=== PATIENT | female | born 1945 | race Caucasian/White ===

== ENCOUNTER 2016-11-22 16:45 | Emergency (ER) | payer OTHER ==
--- NOTE | 2016-11-22 17:08 | PROVIDER DOCUMENTATION ---
Addendum entered and electronically signed by Jordan Matthew MD 12/04/16 03: 01: Attestation - Scribe Verification/Attestation Scribe:: Blake Busby Acting as Scribe for:: Jordan Matthew Scribe documention review:: This chart was documented by a scribe and accurately reflects the service the provider performed and the decisions made by the provider. Original Note: HPI-General Adult - General Source: patient - History of Present Illness -Gen Adult Nature of Presenting Problems: 71 yo F presents to the ER with complaint of blood pressure problems. Has been keeping a log, systolic pressure ranges from 140-170. States her pulse has dropped down to the 40's. States she is not any more short of breath or coughing more than usual. Complains of a JENKINS. Onset/Duration: reports: 4 days ago <Shana Ramachandran - Last Filed: 11/22/16 17:47> <Blake Busby - Last Filed: 11/22/16 19:11> - General Chief Complaint: Shortness of Breath Stated Complaint: SOB/COPD/BP PROB Time Seen by Provider: 11/22/16 17:06 Allergies/Adverse Reactions: Patient Allergies Allergy/AdvReac Type Severity Reaction Status Date / Time No Known Allergies Allergy Verified 11/22/16 16:56 Home Medications: Home Medication List Medication Instructions Recorded Confirmed Last Taken Type Clonidine [Catapres] 0.1 mg PO DAILY 11/22/16 11/22/16 11/22/16 History Hydrochlorothiazide 25 mg PO TID 11/22/16 11/22/16 11/22/16 History Irbesartan [Avapro] 300 mg PO DAILY #30 tablet 11/22/16 Unknown Rx Review of Systems - Adult - REVIEW OF SYSTEMS - ADULT Constitutional: denies: chills, fever Eyes: reports: no symptoms reported Ears, Nose, Mouth & Throat: reports: no symptoms reported Cardiovascular: reports: irregular heart rate. denies: chest pain, palpitations Respiratory: reports: cough, shortness of breath Gastrointestinal: reports: no symptoms reported Genitourinary: reports: no symptoms reported Musculoskeletal: reports: no symptoms reported Integumentary: reports: no symptoms reported Neurological: reports: headache/migraines. denies: dizziness/vertigo Psychiatric: reports: no symptoms reported Endocrine: reports: no symptoms reported Hematologic/Lymphatic: reports: no symptoms reported Allergic/Immunologic: reports: no symptoms reported All Other Systems: Reviewed and Negative <Shana Ramachandran - Last Filed: 11/22/16 17:47> Past History - Adult - PAST MEDICAL HISTORY-ADULT Review of Records: reports: Nursing Assessment Review, Medications Reviewed Cardiovascular: reports: HTN Respiratory: reports: COPD - PRIOR SURGERIES/PROCEDURES Surgical/Procedure History: reports: hysterectomy - IMMUNIZATION STATUS Childhood Immunizations: See Nurse Assessment Flu Vaccine: See Nurse Assessment <Shana Ramachandran - Last Filed: 11/22/16 17:47> Physical Exam-General - PHYSICAL EXAM-ADULT Initial Vital Signs Reviewed: Yes - CONSTITUTIONAL General Appearance: alert, no apparent distress - EYES Eyes: PERRL/EOMI, pink conjunctivae - HEAD, EARS, NOSE, MOUTH & THROAT HENMT: normocephalic/atraumatic, normal ENT inspection - NECK Neck: supple, normal inspection - RESPIRATORY Respiratory: no respiratory distress, no accessory muscle use - CARDIOVASCULAR Cardiovascular: normal peripheral pulses, regular rate, rhythm - MUSCULOSKELETAL Back Exam: no CVA tenderness, no vertebral tenderness Extremity: normal gait, normal inspection - SKIN Integumentary: normal color, warm/dry - NEUROLOGIC Neurologic: grossly normal, no motor/sensory deficits - PSYCHIATRIC Psych/Mental Status: normal mood/affect, normal thought content, normal thought process, oriented x 3 <Shana Ramachandran - Last Filed: 11/22/16 17:47> Progress - PLAN OF CARE/RESULTS Progress/Plan/Lab Results: Vital Signs Temp Pulse Resp BP Pulse Ox 11/22/16 16:50 97.7 F 63 19 229/065 99 No Known Allergies Allergy (Verified 11/22/16 16:56) Clonidine [Catapres] 0.1 mg PO DAILY 11/22/16 Hydrochlorothiazide 25 mg PO TID 11/22/16 Laboratory 11/22/16 17:10 WBC 9.00 RBC 5.56 H Hgb 15.3 Hct 46.7 MCV 84.0 MCH 27.5 MCHC 32.8 L RDW Std Deviation 13.1 Plt Count 235 MPV 10.7 H Immature Gran % (Auto) 0.1 Neut % (Auto) 51.8 Lymph % (Auto) 38.4 [place] % (Auto) 6.3 Eos % (Auto) 3.1 Baso % (Auto) 0.3 Immature Gran # (Auto) 0.01 Neut # (Auto) 4.65 Lymph # (Auto) 3.46 H [place] # (Auto) 0.57 Eos # (Auto) 0.28 Baso # (Auto) 0.03 Orders Category Date Time Status Cardiac Monitoring DIRECTED Care 11/22/16 17:01 Active Oxygen Therapy- ED Nursing DIRECTED Care 11/22/16 17:01 Active Saline Loc NOW Care 11/22/16 17:01 Active CHEST-2 VIEWS [RAD] Stat Exams 11/22/16 17:01 Ordered CBC WITH ELECTRONIC DIFF [HEME] Stat Lab 11/22/16 17:10 Completed CK PROFILE [SP CHEM] Stat Lab 11/22/16 17:10 Received COMPREHENSIVE METABOLIC PANEL [CHEM] Stat Lab 11/22/16 17:10 Received MAGNESIUM [CHEM] Stat Lab 11/22/16 17:10 Received TROPONIN T Stat Lab 11/22/16 17:10 Received TSH Stat Lab 11/22/16 17:10 Received EKG [EKG] Stat Ther 11/22/16 17:01 Draft - EKG 1 Time of EKG reading by physician:: 16:51 EKG Read and Signed by:: Aj Greene EKG Interpretation (*Must complete 3 of following elements*): Abnormal Rate: 67 Rhythm: sinus rhythm with PAC's [place]: normal QRS: normal [place] Interval: normal ST Wave: non-specific ST changes <Shana Ramachandran - Last Filed: 11/22/16 17:47> Departure - Departure Time of Disposition Order: 17:47 Certified Medical Emergency: Emergent <Shana Ramachandran - Last Filed: 11/22/16 17:47> - Departure Time of Disposition Order: 19:11 Certified Medical Emergency: Emergent <Blake Busby - Last Filed: 11/22/16 19:11> - Departure Disposition: HOME 01 Condition: Stable Additional Instructions: ED Follow Up Instructions: You have been treated by a care provider in the Emergency Department. These instructions are being provided to you so you can have an understanding of how to care for yourself upon discharge. Upon discharge from the Emergency Department, you are responsible for making arrangements for follow-up care by a physician of your choice. Take all prescribed medications as directed. Return to the Emergency Department immediately for any new or worsening symptoms. You may call the Physician Referral phone number at [phone] to obtain a list of Physicians who are taking new patients. Prescriptions: Irbesartan [Avapro] 300 mg PO DAILY #30 tablet Referrals: Aj Greene MD [Primary Care Provider] - Instructions: Irbesartan tablets, Hypertension, [id number] Attestation - Scribe Verification/Attestation Scribe:: Shana Ramachandran Acting as Scribe for:: Aj Greene Scribe documention review:: This chart was documented by a scribe and accurately reflects the service the provider performed and the decisions made by the provider. <Shana Ramachandran - Last Filed: 11/22/16 17:47> - Scribe Verification/Attestation Scribe:: Blake Busby Acting as Scribe for:: Jordan Matthew Scribe documention review:: This chart was documented by a scribe and accurately reflects the service the provider performed and the decisions made by the provider. <Blake Busby - Last Filed: 11/22/16 19:11> Physician Attestation
[2016-11-22 17:22] LABS: MANUAL DIFF NEEDED? NO
[2016-11-22 17:26] LABS: BASO% 0.3 % (0.0-0.8); EOS# 0.28 X1000 (0.0-0.7); EOS% 3.1 % (0.0-10.0); HEMATOCRIT 46.7 % (37.0-47.0); HEMOGLOBIN 15.3 g/dL (12.0-16.0); IMM GRAN# 0.01 X1000 (0.0-0.04); IMM GRAN% 0.1 % (0.0-0.5); LYMPH# 3.46 X1000 (1.2-3.4); LYMPH% 38.4 % (20.5-51.1); MCH 27.5 PG (27-31); MCHC 32.8 g/dL (33-37); MONO# 0.57 X1000 (0.11-0.59); MONO% 6.3 % (1.7-9.3); MPV 10.7 FL (7.4-10.4); NEUT% 51.8 % (42.2-75.2); PLT 235 X1000 (130-400); RBC 5.56 XMIL (4.2-5.4)
--- NOTE | 2016-11-22 17:46 | EKG Report ---
Test Performed on : 11/22/2016 4:51:40 PM Test Reason : COPD/HYPERTENSION Blood Pressure : / mmHG Vent. Rate : 067 BPM Atrial Rate : 067 BPM P-R Int : 114 ms QRS Dur : 088 ms QT Int : 396 ms P-R-T Axes : 034 072 076 degrees QTc Int : 418 ms Sinus rhythm. with premature atrial complexes. Nonspecific ST abnormality Abnormal ECG No previous ECGs available Unconfirmed Result
[2016-11-22 17:50] LABS: AGAP 13; ALBUMIN 4.8 g/dL (3.5-5.0); ALKALINE PHOSPHATASE 86 U/L (32-104); BUN 11 mg/dL (8-22); CALCIUM 10.2 mg/dL (8.8-10.2); CHLORIDE 95 mmol/L (98-107); CK PROFILE 65 U/L (24-173); COSMO 273; GOT 17 U/L (10-30); GPT 8 U/L (10-36); MAGNESIUM 1.9 mg/dL (1.5-2.7); POTASSIUM 3.3 mmol/L (3.5-5.1); SODIUM 137 mmol/L (136-145); TCO2 29 mmol/L (25-35); TOTAL PROTEIN 8.7 g/dL (6.3-8.3)
[2016-11-22] MEDS ORDERED: BENICAR PO ONE (17:50)
[2016-11-22] MEDS ORDERED: BENICAR ONE (17:51)
[2016-11-22 19:13] VITALS: BP 146/67
== END 2016-11-22 19:15 | disposition home or self-care (01) ==
LOC: P.ED 16:45
DX: I10 Essential (primary) hypertension (principal); R06.02 Shortness of breath; R05 Cough; R94.31 Abnormal electrocardiogram [ECG] [EKG]; R51 Headache; J44.9 Chronic obstructive pulmonary disease, unspecified; I49.9 Cardiac arrhythmia, unspecified; Z79.899 Other long term (current) drug therapy
CPT/HCPCS: 80053; 82550; 83735; 84443; 84484; 85025; 93005; 99284